=== PATIENT | female | born 1945 | race African-American/Black ===

== ENCOUNTER 2020-01-11 13:56 | Inpatient (IN) | payer OTHER ==
[2020-01-11] VITALS (10 sets, daily range): BP systolic 140–185; BP diastolic 58–73
[~2020-01-11] VITALS: Ht 167.6 cm; Wt 72.6 kg
[2020-01-11] MEDS ORDERED: ASPIRIN 81MG TABLET PO ONE (14:15)
[2020-01-11] MEDS ORDERED: ATROPINE SULFATE 1MG/10ML SYR IV ONE ×2 (14:15→16:15)
[2020-01-11 15:07] LABS: BASOPHILS % 0.4 % (0.0-2.0); EOSINOPHILS % 3.9 % (0.0-5.0); HEMATOCRIT. 30.7 % (36.0-48.0); HEMOGLOBIN. 9.7 g/dL (12.0-16.0); LYMPHOCYTES % 17.4 % (20.0-50.0); MEAN CORPUSCULAR HEMOGLOBIN 27.9 pg (28.0-32.0); MEAN CORPUSCULAR VOLUME 88.4 fL (81.0-99.0); MEAN PLATELET VOLUME 9.5 fl (7.4-10.4); MONOCYTES % 7.7 % (2.0-8.0); NEUTROPHILS % 70.6 % (40.0-76.0); PLATELET 198 x1000/uL (130-400); RED BLOOD CELL COUNT 3.48 mill/uL (4.2-5.4); RED CELL DISTRIBUTION WIDTH 16.1 % (11.6-14.6)
[2020-01-11 15:13] LABS: CHLORIDE 102 mEq/L (98-107)
[2020-01-11 15:21] LABS: PROTHROMBIN TIME 10.4 sec (9.6-11.0)
[2020-01-11] MEDS ORDERED: DOPAMINE 400MG/250ML PREMIX 250 ML IV SCH (16:00)
[2020-01-11] MEDS ORDERED: ACETAMINOPHEN 325MG TABLET PO PRN (17:00)
[2020-01-11] MEDS ORDERED: HYDROCODONE/ACETAMINOPHEN 5/325MG TABLET PO PRN (17:00)
[2020-01-11] MEDS ORDERED: ENOXAPARIN 40MG/0.4ML SYR SUBCUT SCH (17:00)
[2020-01-11] MEDS ORDERED: DOCUSATE SODIUM 100MG CAPSULE PO PRN (17:00)
[2020-01-11] MEDS ORDERED: MAGNESIUM/ALUMINUM HYDROXIDE/SIMETHICONE 30ML UDC PO PRN (17:00)
[2020-01-11 17:23] LABS: DIGOXIN < 0.1 ng/mL (0.9-2.0)
[2020-01-11] MEDS ORDERED: DEXTROSE 50% WATER 50ML SYRINGE IV PRN (22:15)
[2020-01-11] MEDS: BLOOD SUGAR DIAGNOSTIC STRIP TEST SCH (23:00)
[2020-01-11] MEDS: INSULIN LISPRO 100 UNITS/ML SUBCUT SCH (23:00)
[2020-01-11] MEDS: AMLODIPINE 5MG TABLET PO SCH (23:44)
[2020-01-11] MEDS: ENOXAPARIN 30MG/0.3ML SYR SUBCUT SCH (23:44)
[2020-01-12] VITALS (80 sets, daily range): BP systolic 85–217; BP diastolic 41–125
[2020-01-12] MEDS ORDERED: ATROV IH (02:28)
[2020-01-12] MEDS ORDERED: ATOR40TA70 MT (02:28)
[2020-01-12] MEDS ORDERED: CLOP75TA33 MT (02:28)
[2020-01-12] MEDS ORDERED: PSYL575P22 MT (02:28)
[2020-01-12] MEDS ORDERED: CALC0.253 MT (02:28)
[2020-01-12] MEDS ORDERED: FURO80TA87 MT (02:28)
[2020-01-12] MEDS ORDERED: OMEP20TA2 MT (02:28)
[2020-01-12] MEDS ORDERED: TUSSL MT (02:28)
[2020-01-12] MEDS ORDERED: MULT-1203 MT (02:28)
[2020-01-12] MEDS ORDERED: INSU100I28 SQ (02:28)
[2020-01-12] MEDS ORDERED: ALBU90AE INH (02:28)
[2020-01-12] MEDS ORDERED: [UNRECOGNIZED DRUG - CODE] PO (02:28)
[2020-01-12] MEDS ORDERED: COR12 MT (02:28)
[2020-01-12] MEDS ORDERED: HYDR-3281 PO (02:28)
[2020-01-12] MEDS ORDERED: LISI-186 MT (02:28)
[2020-01-12] MEDS ORDERED: FERR325T6 MT (02:28)
[2020-01-12] MEDS ORDERED: ASPI-1497 MT (02:28)
[2020-01-12] MEDS ORDERED: DOPAMINE 800MG PREMIX (DOUBLE) 250 ML IV PRN (02:45)
[2020-01-12] MEDS ORDERED: ATROPINE SULFATE 1MG/10ML SYR IV ONE (02:45)
[2020-01-12] MEDS: ONDANSETRON HCL 4MG/2ML INJ IV PRN ×2 (04:24→14:40)
[2020-01-12 06:29] LABS: BASOPHILS % 0.5 % (0.0-2.0); EOSINOPHILS % 4.1 % (0.0-5.0); HEMATOCRIT. 28.6 % (36.0-48.0); HEMOGLOBIN. 9.1 g/dL (12.0-16.0); LYMPHOCYTES % 16.2 % (20.0-50.0); MEAN CORPUSCULAR HEMOGLOBIN 27.9 pg (28.0-32.0); MEAN CORPUSCULAR VOLUME 88.2 fL (81.0-99.0); MEAN PLATELET VOLUME 9.5 fl (7.4-10.4); MONOCYTES % 7.5 % (2.0-8.0); NEUTROPHILS % 71.7 % (40.0-76.0); PLATELET 218 x1000/uL (130-400); RED BLOOD CELL COUNT 3.24 mill/uL (4.2-5.4); RED CELL DISTRIBUTION WIDTH 16.1 % (11.6-14.6)
[2020-01-12 06:56] LABS: T4 FREE 0.89 ng/dL (0.76-1.46)
[2020-01-12] MEDS: BLOOD SUGAR DIAGNOSTIC STRIP TEST SCH ×4 (07:38→21:00)
[2020-01-12] MEDS: INSULIN LISPRO 100 UNITS/ML SUBCUT SCH ×4 (08:20→21:00)
[2020-01-12] MEDS ORDERED: AMLODIPINE 5MG TABLET PO SCH (09:00)
[2020-01-12] MEDS: AMLODIPINE 5MG TABLET PO SCH ×2 (09:22→21:20)
[2020-01-12] MEDS ORDERED: LIDOCAINE HCL 1% 20ML VIAL (Pyxis) INJ ONE (13:44)
[2020-01-12] MEDS: HYDRALAZINE HCL 10MG TABLET PO SCH ×2 (14:33→21:21)
[2020-01-12] MEDS: ENOXAPARIN 30MG/0.3ML SYR SUBCUT SCH (18:00)
[2020-01-13] VITALS (67 sets, daily range): BP systolic 110–181; BP diastolic 38–119
[2020-01-13] MEDS: HYDRALAZINE HCL 10MG TABLET PO SCH ×2 (06:00→14:00)
[2020-01-13 06:37] LABS: BASOPHILS % 0.6 % (0.0-2.0); EOSINOPHILS % 0.9 % (0.0-5.0); HEMATOCRIT. 35.6 % (36.0-48.0); HEMOGLOBIN. 11.1 g/dL (12.0-16.0); MEAN CORPUSCULAR HEMOGLOBIN 27.8 pg (28.0-32.0); MEAN PLATELET VOLUME 9.3 fl (7.4-10.4); MONOCYTES % 5.1 % (2.0-8.0); NEUTROPHILS % 84.4 % (40.0-76.0); PLATELET 223 x1000/uL (130-400); RED CELL DISTRIBUTION WIDTH 16.6 % (11.6-14.6)
[2020-01-13] MEDS: BLOOD SUGAR DIAGNOSTIC STRIP TEST SCH ×4 (07:50→20:29)
[2020-01-13] MEDS: AMLODIPINE 5MG TABLET PO SCH ×2 (09:19→20:29)
[2020-01-13] MEDS: INSULIN LISPRO 100 UNITS/ML SUBCUT SCH ×4 (09:20→20:29)
[2020-01-13] MEDS: ENOXAPARIN 30MG/0.3ML SYR SUBCUT SCH (17:30)
== END 2020-01-13 21:15 | disposition short-term general hospital (02) | DRG 291 ==
LOC: ER 13:56 → CVICU 15:52 → ENRESERV 20:41
PROVIDERS: ADMIT Hospitalist; ATTEND Hospitalist
PROC: 05HY33Z Insertion of Infusion Device into Upper Vein, Percutaneous Approach (ICD-10-PCS; principal; 2020-01-12)
PROC: B54NZZA Ultrasonography of Left Upper Extremity Veins, Guidance (ICD-10-PCS; 2020-01-12)
PROC: 5A1D70Z Performance of Urinary Filtration, Intermittent, Less than 6 Hours Per Day (ICD-10-PCS; 2020-01-12)
PROC: 5A1D70Z Performance of Urinary Filtration, Intermittent, Less than 6 Hours Per Day (ICD-10-PCS; 2020-01-13)
DX: I13.2 Hypertensive heart and chronic kidney disease with heart failure and with stage 5 chronic kidney disease, or end stage renal disease (principal); I50.43 Acute on chronic combined systolic (congestive) and diastolic (congestive) heart failure; N18.6 End stage renal disease; E43 Unspecified severe protein-calorie malnutrition; I44.0 Atrioventricular block, first degree; E87.5 Hyperkalemia; I42.9 Cardiomyopathy, unspecified; I45.9 Conduction disorder, unspecified; I48.91 Unspecified atrial fibrillation; E78.5 Hyperlipidemia, unspecified; D63.1 Anemia in chronic kidney disease; I95.9 Hypotension, unspecified; E11.22 Type 2 diabetes mellitus with diabetic chronic kidney disease; F03.90 Unspecified dementia, unspecified severity, without behavioral disturbance, psychotic disturbance, mood disturbance, and anxiety; R00.1 Bradycardia, unspecified; E11.51 Type 2 diabetes mellitus with diabetic peripheral angiopathy without gangrene; Z87.891 Personal history of nicotine dependence; I25.2 Old myocardial infarction; Z89.612 Acquired absence of left leg above knee; Z99.2 Dependence on renal dialysis; Z68.25 Body mass index [BMI] 25.0-25.9, adult; T44.7X5A Adverse effect of beta-adrenoreceptor antagonists, initial encounter
CPT/HCPCS: 36415; 71045; 76937; 80048; 80053; 80061; 80162; 82962; 83036; 83735; 83880; 84439; 84443; 84484; 85025; 86850; 86900; 93005; 93306; 93970; 99291; C1725; J0461; J1265; J1650; J1815; J2405; J3490